=== PATIENT | male | born 1985 | race Caucasian/White ===

== ENCOUNTER 2017-12-08 12:32 | Emergency (ER) | payer OTHER ==
[~2017-12-08] VITALS: Ht 170.2 cm; Wt 78.7 kg
[2017-12-08 12:33] VITALS: BP 172/80
[2017-12-08] MEDS ORDERED: HYDROcodone/APAP 5/325 TABLET ONE (12:58)
[2017-12-08] MEDS ORDERED: METHOCARBAMOL 750 MG TABLET ONE (12:58)
[2017-12-08] MEDS ORDERED: KETOROLAC 30 MG/1 ML ONE (12:58)
[2017-12-08] MEDS ORDERED: KETOROLAC 30 MG/1 ML IM ONE (13:00)
[2017-12-08] MEDS ORDERED: HYDROcodone/APAP 5/325 TABLET PO ONE (13:00)
[2017-12-08] MEDS ORDERED: METHOCARBAMOL 750 MG TABLET PO ONE (13:00)
== END 2017-12-08 13:19 | disposition home or self-care (01) ==
LOC: ED 13:02
DX: S39.012A Strain of muscle, fascia and tendon of lower back, initial encounter (principal); G89.29 Other chronic pain; X50.9XXA Other and unspecified overexertion or strenuous movements or postures, initial encounter; Y93.89 Activity, other specified; Y99.8 Other external cause status; Y92.89 Other specified places as the place of occurrence of the external cause
CPT/HCPCS: 96372; 99283; J1885